=== PATIENT | female | born 1965 | race Two or more races ===

== ENCOUNTER 2017-11-01 20:37 | Emergency (ER) | payer OTHER ==
[~2017-11-01] VITALS: Ht 154.9 cm; Wt 77.1 kg
[~2017-11-01 20:37] MED LIST: HYDROCODONE-APA1 TA2 PO; SULFAMETHOXAZOL1 TA4 PO; URETRON D/S TAB1 TAB PO
[2017-11-02] MEDS ORDERED: DICY20TA PO (06:10)
== END 2017-11-02 06:45 | disposition home or self-care (01) ==
LOC: ER 20:37
DX: R10.84 Generalized abdominal pain (principal)